=== PATIENT | female | born 1945 | race Caucasian/White ===

== ENCOUNTER → 2016-12-07 | Outpatient (CLI) | payer BC, MEDICARE ==
--- NOTE | 2016-12-07 11:37 | US ---
EXAM DESCRIPTION: Breast,Bilateral: Ultrasound CLINICAL HISTORY: 71 yearsFemaleFOLLOW UP. Benign left breast biopsy November 2015. No complaints. COMPARISON: Digital bilateral 3-D tomosynthesis diagnostic mammogram breasts on this visit. Targeted bilateral breast ultrasound following this examination. TECHNIQUE: Transcutaneous scanning of the bilateral retroareolar breasts utilizing two-dimensional and Doppler modes. Scanning performed by the wire mesh filter fabricator only. FINDINGS: Scanning of the 1200 clock position of the bilateral breasts. 0 - 2 cm from the nipple. Heterogeneous mixture of fatty tissue and fibroglandular tissues. No discrete solid mass or cyst. No parenchymal edema or large calcifications. No skin thickening. IMPRESSION: 1. Bi-Rads Category 2: Benign. 2. Please refer to bilateral 3-D tomosynthesis diagnostic examination and report on this visit. The FINDINGS and the follow-up plan were reviewed in person with the patient after the examination. Written communication explaining the IMPRESSION and follow-up will be mailed to the patient and referring care provider. Electronically signed by: J Carlos Whitten MD 12/07/2016 11:36 AM CDT
--- NOTE | 2016-12-07 11:38 | MAM ---
EXAM DESCRIPTION: 3D Diagnostic, Bilateral: Digital mammography. CLINICAL HISTORY: 71 yearsFemaleFOLLOW UP . No complaints. Benign left breast biopsy November 2015. No family history of breast cancer. Postmenopausal. HRT 5 or more years ago. COMPARISON: 2-D digital bilateral breast screening 10/14/2015. Left breast targeted ultrasound 10/29/2015. Ultrasound-guided left breast core biopsy 11/11/2015. Targeted bilateral breast ultrasound following this examination. Reports from prior examinations also reviewed. TECHNIQUE: Bilateral CC LM MLO projection full-field images, 3-D tomosynthesis digital mammographic technique. Also bilateral synthesized CC MLO LM full-field images. CAD not utilized. FINDINGS: The breast parenchymal density pattern is: Scattered areas of fibroglandular density. No skin thickening or nipple retraction . Dense fibroglandular tissues bilaterally retroareolar and anterior third of the breasts. Bilateral solitary microcalcifications. Bilateral vascular calcifications. No focal asymmetry , and no suspicious microcalcifications left breast. Questionable mass density 1200 clock position retroareolar left breast. ULTRASOUND: Scanning of the 1200 clock position of the bilateral breasts. 0 - 2 cm from the nipple. Heterogeneous mixture of fatty tissue and fibroglandular tissues. No discrete solid mass or cyst. No parenchymal edema or large calcifications. No skin thickening. IMPRESSION: BI-RADS CATEGORY: 2 - BENIGN FINDINGS. FOLLOW UP: Return to routine digital bilateral screening, one year interval from November 2016. The FINDINGS and the follow-up plan were reviewed in person with the patient after the ultrasound examination. Written communication explaining the IMPRESSION and follow-up, will be mailed to the patient and referring health care provider. According to the [employer], yearly mammograms are recommended starting at age 40 and continuing as long as a woman is in good health. Any breast change noted on a breast self-exam should be reported promptly to the patient's healthcare provider. Breast MRI is recommended for women with an approximately 20-25% or greater lifetime risk of breast cancer, including women with a strong family history of breast or ovarian cancer and women who have been treated for Hodgkin's disease. A negative mammographic report should not delay tissue diagnosis in patients with significant clinical history or physical findings. Extremely dense breast tissue limits the sensitivity of digital mammography. Electronically signed by: J Carlos Whitten MD 12/07/2016 11:36 AM CDT
== END ==
LOC: MAMMO 10:21
PROVIDERS: ATTEND Nurse Practitioner Acute Care
DX: N63.20 Unspecified lump in the left breast, unspecified quadrant (principal)
CPT/HCPCS: 76641; G0204; G0279

== ENCOUNTER → 2017-03-08 | Outpatient (CLI) | payer BC, MEDICARE | LOC: GMAL 11:00 | PROVIDERS: ATTEND Family Medicine | DX: Z00.00 Encounter for general adult medical examination without abnormal findings (principal) ==

== ENCOUNTER → 2017-11-08 | Outpatient (CLI) | payer BC, MEDICARE | LOC: GMAL 10:27 | PROVIDERS: ATTEND Family Medicine | DX: E55.9 Vitamin D deficiency, unspecified (principal) ==

== ENCOUNTER → 2017-11-15 | Outpatient (CLI) | payer BC, MEDICARE | LOC: GMAL 16:39 | PROVIDERS: ATTEND Family Medicine | DX: D50.8 Other iron deficiency anemias (principal); R25.2 Cramp and spasm ==

== ENCOUNTER → 2018-05-24 | Outpatient (CLI) | payer BC, MEDICARE ==
--- NOTE | 2018-05-25 10:38 | MAM ---
EXAM DESCRIPTION: 3D Screening BILATERAL : Digital Mammography. CLINICAL HISTORY: 72 years Female SCREENING . No complaints. No personal or family history of breast cancer. Childbirth. Premenopausal. No HRT. Benign left breast biopsy. Lifetime risk of developing breast cancer (Tyrer-Cuzick model)(%): 4.3. COMPARISON: Bilateral digital tomosynthesis breast examination 12/07/2016. TECHNIQUE: Bilateral CC and MLO projection full-field images, digital tomosynthesis mammographic technique. Bilateral digital 2-D full-field MLO images. CAD not available for tomosynthesis or 2-D images. FINDINGS: The breast parenchymal density pattern is: Scattered areas of fibroglandular density. No skin thickening or nipple retraction. Dense breast tissue in the anterior third of both breasts. Bilateral axillary nodes. Bilateral solitary microcalcifications. No new focal, stellate mass or density, focal asymmetry , and no suspicious microcalcifications bilaterally. Stable mammograms compared to prior study. IMPRESSION: Benign exam. BIRAD CATEGORY: 2 BENIGN FINDINGS. RECOMMENDATIONS: FOLLOW UP: Routine digital bilateral mammographic screening, one year interval from May 2018. Written communication explaining the IMPRESSION and follow-up, will be mailed to the patient and referring health care provider. The FINDINGS and the FOLLOW-UP plan were reviewed in person with the patient after the examination. According to the [employer], yearly mammograms are recommended starting at age 40 and continuing as long as a woman is in good health. Any breast change noted on a breast self-exam should be reported promptly to the patient's healthcare provider. Breast MRI is recommended for women with an approximately 20-25% or greater lifetime risk of breast cancer, including women with a strong family history of breast or ovarian cancer and women who have been treated for Hodgkin's disease. A negative mammographic report should not delay tissue diagnosis in patients with significant clinical history or physical findings. Extremely dense breast tissue limits the sensitivity of digital mammography. Electronically signed by: J Carlos Whitten MD 05/25/2018 10:35 AM CDT
== END ==
LOC: MAMMO 16:26
PROVIDERS: ATTEND Family Medicine
DX: Z12.31 Encounter for screening mammogram for malignant neoplasm of breast (principal)